=== PATIENT | male | born 1955 | race Two or more races ===

== ENCOUNTER 2019-06-25 12:47 | Outpatient (CLI) | payer MEDICAID ==
[~2019-06-25] VITALS: Ht 177.8 cm; Wt 82.1 kg
[2019-06-25 13:14] VITALS: BP 120/69
[2019-06-25] MEDS ORDERED: ZANTAC150 MG ORAL (14:38)
[2019-06-25] MEDS ORDERED: ATENOLOL25 MG ORAL (14:38)
[2019-06-25] MEDS ORDERED: PRAVASTATIN SOD80 M1 ORAL (14:38)
[2019-06-25] MEDS ORDERED: FLUOXETINE HCL10 MG ORAL (14:38)
[2019-06-25] MEDS ORDERED: ASPIRIN EC81 MG ORAL (14:38)
--- NOTE | 2019-06-25 16:45 | Consultation ---
DATE OF CONSULTATION: 06/25/2019 CONSULTING PHYSICIAN: Pollo Baltazar M.D. CHIEF COMPLAINT: Abdominal pain. HISTORY OF PRESENT ILLNESS: This is a very complicated 64-year-old male who apparently had a colonoscopy. He had a complication with perforation. according to him. Then he went to [facility]. He had a lot of complications, had an emergency surgery with colostomy, and has enterocutaneous fistula, which apparently had a colonoscopy about [address] Antonio Lopez at [facility] in which the fistula was closed from inside. Since then, he has normal colostomy bag and he is doing fantastic. Referred by the primary care physician for followup. PAST MEDICAL HEALTH: 1. Coronary artery disease, status post cardiac stent placement. 2. Depression. 3. GERD. 4. Hypertension. 5. Diverticulosis. 6. History of colonic polyps. PAST SURGICAL HISTORY: As above. MEDICATIONS: Please see medication reconciliation list. FAMILY HISTORY: No family history of GI malignancies. SOCIAL HISTORY: The patient denies any alcohol usage, but he used to smoke, quit in 2004. ALLERGIES: No known drug allergies. REVIEW OF SYSTEMS: Positive for GERD. PHYSICAL EXAMINATION: VITAL SIGNS: Temperature 98.5, blood pressure is 120/69, pulse is 69, respirations 20. HEENT: Normocephalic and atraumatic. No scleral icterus. NECK: Supple. No evidence of obvious lymphadenopathy. CARDIOVASCULAR: Regular rate and rhythm. Plus S1 and S2. LUNGS: Decreased breath sounds bilaterally based on the supine exam. ABDOMEN: Soft, nontender. No rebound. No guarding. No peritoneal sign. EXTREMITIES: No cyanosis, no clubbing, no edema. ASSESSMENT AND PLAN: This is a 64-year-old male with complicated colonoscopy with perforation requiring surgery and having enterocutaneous fistula requiring endoscopy by Dr. Antonio Lopez. At this time, the patient is asymptomatic. There is no leakage from the old surgical site. I was recommending not to have a colonoscopy for at least another 4 years given the last one was a year ago. The patient was instructed to come back if he becomes symptomatic. He was complaining of GERD. The patient was given omeprazole 40 mg daily. Pollo Daniel Baltazar DR: KRISTYN JOB#: [id number] CC:
== END 2019-06-25 14:47 | disposition home or self-care (01) ==
LOC: PAN 12:47
DX: R10.9 Unspecified abdominal pain (principal); I11.9 Hypertensive heart disease without heart failure; Z95.5 Presence of coronary angioplasty implant and graft; F32.9 Major depressive disorder, single episode, unspecified; K21.9 Gastro-esophageal reflux disease without esophagitis; K57.90 Diverticulosis of intestine, part unspecified, without perforation or abscess without bleeding
CPT/HCPCS: G0463